=== PATIENT | male | born 1960 | race Caucasian/White ===

== ENCOUNTER → 2022-08-07 | Outpatient (CLI) | payer BC ==
[~2022-08-07] MED LIST: ATOR10TA66 PO; HYDR-623 PO; KETO75CA PO; LOSA100T7 PO; LVT.15T PO; META800T5 PO
== END ==
LOC: CARD 08:47
PROVIDERS: ATTEND Internal Medicine Cardiovascular Disease
DX: R55 Syncope and collapse (principal)
CPT/HCPCS: 93306

== ENCOUNTER → 2022-08-13 | Outpatient (CLI) | payer BC ==
[~2022-08-13] VITALS: Ht 193 cm; Wt 110.0 kg
[~2022-08-13] MED LIST changes: +CATHETER FLUSH 10 ML SYR IVP PRN
[2022-08-13 08:05] VITALS: BP 138/75
--- NOTE | 2022-08-13 16:10 | Cardiology Stress Test Report ---
Stress Test Report Date of Procedure/Referring: Date of Procedure: August 13, 2022 PCP Suly Fu MD Admitting Physician Admitting Physician: Attending Physician: Madhavi Chase MD Indications: Bradycardia Baseline Heart Rate: 52 Baseline Blood Pressure: Blood Pressure Systolic: 138 Blood Pressure Diastolic: 75 Vital Signs Date Time Temp Pulse Resp B/P (MAP) Pulse Ox O2 Delivery O2 Flow Rate FiO2 08/13/22 08:05 52 138/75 (96) Baseline Vital Signs Vital Signs Date Time Temp Pulse Resp B/P (MAP) Pulse Ox O2 Delivery O2 Flow Rate FiO2 08/13/22 08:05 52 138/75 (96) Baseline EKG: Baseline EKG: NSR Summary: After explaining the procedure and details to the patient, he signed the consent and was brought to the stress nuclear laboratory. Patient exercised on standard Pablo protocol, EKG, heart rate and blood pressure were monitored continuously, resting and stress doses of radio tracer were injected, imaging was acquired and reviewed in the short axis, horizontal long axis and vertical long axis views Patient was able to exercise for a total of 7.30 minutes on Pablo protocol, METs 9.1 Maximum heart rate 143 Maximum blood pressure 216/99 Stress EKG, Minimal nondiagnostic changes Recovery EKG, Return to baseline TID: 0.92 SSS: 6 SDS: 3 EF: 62 Conclusion: Good exercise tolerance for 7 minutes and 30 seconds on standard Pablo protocol 9.1 METS achieving 91% of maximal expected heart rate Appropriate heart rate response to exercise with occasional PVCs noted at peak stress level. Return to baseline during recovery Hypertensive response to exercise with peak blood pressure 216/99 return to baseline during recovery Nondiagnostic EKG changes with exercise return to baseline during recovery Reversible ischemia involving the mid anterior wall and mid to apical anterolateral wall Normal left ventricular size, ejection fraction 62% Copy Copies To 1: SULY FU MD, BASHAR J MD August 13, 2022 16:10
== END ==
LOC: CARD 06:31
PROVIDERS: ATTEND Internal Medicine Cardiovascular Disease
DX: I25.89 Other forms of chronic ischemic heart disease (principal)
CPT/HCPCS: 78452; 93017; A9502

== ENCOUNTER 2022-08-20 10:27 | Day surgery (SDC) | payer BC ==
[2022-08-20] VITALS (7 sets, daily range): BP systolic 116–159; BP diastolic 65–78
[~2022-08-20] VITALS: Ht 193 cm; Wt 113.4 kg
[~2022-08-20 10:27] MED LIST changes: -CATHETER FLUSH 10 ML SYR IVP PRN
[2022-08-20] MEDS ORDERED: LIDOCAINE 1% INJ 20 ML VIAL ONE (10:56)
[2022-08-20] MEDS ORDERED: NS IV 1000 ML 1,000 ML ONE (10:56)
[2022-08-20] MEDS ORDERED: HEParin (CATH LAB) 2,000 ML IV ONE (10:56)
[2022-08-20] MEDS ORDERED: NS IV 1000 ML 1,000 ML IV SCH ×2 (11:00→13:45)
[2022-08-20 11:22] LABS: HEMATOCRIT 53 % (40-54); HEMOGLOBIN 17.7 g/dL (13.3-17.7); MEAN CORPUSCULAR HEMOGLOBIN 32 pg (25-34); MEAN CORPUSCULAR HGB CONC 33 g/dL (32-36); MEAN CORPUSCULAR VOLUME 96 fL (80-99); MEAN PLATELET VOLUME 9.6 fL (9.0-12.2); PLATELET COUNT 205 10^3/uL (130-400); WHITE BLOOD COUNT 6.9 10^3/uL (4.3-11.0)
[2022-08-20 11:23] LABS: BILIRUBIN,URINE NEGATIVE (NEGATIVE); CLARITY,URINE CLEAR; COLOR,URINE YELLOW; GLUCOSE, URINE (UA) NEGATIVE (NEGATIVE); KETONES,URINE NEGATIVE (NEGATIVE); LEUKOCYTE ESTERASE ,URINE NEGATIVE (NEGATIVE); NITRITE,URINE NEGATIVE (NEGATIVE); PROTEIN,URINE NEGATIVE (NEGATIVE)
[2022-08-20] MEDS ORDERED: LOSA100T57 PO (11:27)
[2022-08-20] MEDS ORDERED: MTP25TSR PO (11:27)
[2022-08-20] MEDS ORDERED: LEVO75CA5 PO (11:27)
[2022-08-20] MEDS ORDERED: RIVA20TA PO (11:27)
[2022-08-20 11:33] LABS: BACTERIA,URINE NEGATIVE /HPF; WBC,URINE RARE /HPF
[2022-08-20 11:34] LABS: INR 0.9 (0.8-1.4); PROTHROMBIN TIME PATIENT 12.8 SEC (12.2-14.7)
[2022-08-20 11:41] LABS: ALBUMIN 4.6 GM/DL (3.2-4.5); ALKALINE PHOSPHATASE 66 U/L (40-136); BILIRUBIN,TOTAL 0.7 MG/DL (0.1-1.0); BUN/CREATININE RATIO 15; CALCIUM 9.8 MG/DL (8.5-10.1); CARBON DIOXIDE 31 MMOL/L (21-32); CHLORIDE 104 MMOL/L (98-107); CHOLESTEROL 247 MG/DL (< 200); CREATININE SERUM 1.37 MG/DL (0.60-1.30); GFR ESTIMATED 58; GLUCOSE 84 MG/DL (70-105); HDL CHOLESTEROL 54 MG/DL (40-60); POTASSIUM 3.8 MMOL/L (3.6-5.0); SODIUM 143 MMOL/L (135-145); TRIGLYCERIDES 89 MG/DL (<150); VLDL CHOLESTEROL 18 MG/DL (5-40)
--- NOTE | 2022-08-20 11:41 | Cardiac Procedure Note-CS/ASA ---
Pre-Procedure Note Pre-Op Procedure Note Date of Available H&P: August 14, 2022 Date H&P Reviewed: August 20, 2022 Time H&P Reviewed: 11:40 History & Physical: H&P Reviewed, Patient Examed, No changes noted Pre-Operative Diagnosis: CAD Moderate Sedation PreProcedure Time 11:40 ASA Score 3 Airway Lungs Heart ASA score ASA 1: a normal healthy patient ASA 2: a patient with a mild systemic disease (mid diabetes, controlled hypertension, obesity ASA 3: a patient with a severe systemic disease that limits activity (angina, COPD, prior Myocardial infarction) ASA 4: a patient with an incapacitating disease that is a constant threat to life (CHF, renal failure) ASA 5: a moribund patient not expected to survive 24 hrs. (ruptured aneurysm) ASA 6: a declared brain- patient whose organs are being harvested. For emergent operations, add the letter E after the classification Mallampati Classification Grade 3 Sedation Plan Analgesia, Amnesia, Plan communicated to team members, Discussed options with patient/fam, Discussed risks with patient/fam The patient is an appropriate candidate to undergo the planned procedure, sedation, and anesthesia. The patient immediately re-assessed prior to indication. ALLISON PORTILLO MD August 20, 2022 11:41
--- NOTE | 2022-08-20 11:53 | Diagnostic Imaging Report ---
INDICATION: Abnormal stress test COMPARISON: None available. TECHNIQUE: Single radiograph chest dated 08/20/2022. FINDINGS: The cardiac silhouette is enlarged. No significant pulmonary vascular congestion. Low lung volumes. The lungs are clear of focal pulmonary opacity. No significant pleural effusion. No pneumothorax. No acute osseous abnormality. IMPRESSION: Cardiomegaly without significant pulmonary vascular congestion. Low lung volumes. Dictated by: Dictated on workstation # [id number]
[2022-08-20 12:45] LABS: ALANINE AMINOTRANSFERASE 27 U/L (0-55)
[2022-08-20] MEDS ORDERED: fentaNYL INJ 100 MCG/2 ML AMP ONE (12:53)
[2022-08-20] MEDS ORDERED: MIDAZOLAM 5 MG/5 ML (VERSED) VIAL ONE (12:53)
[2022-08-20] MEDS ORDERED: VERAPAMIL 5 MG/2 ML (CALAN) VIAL IV ONE (12:53)
[2022-08-20] MEDS ORDERED: NITRO DRIP 25000 MCG/D5W 250 ML IV ONE (12:54)
[2022-08-20] MEDS ORDERED: HEParin 1000 UNIT/ML (10ML VIAL) FOR BOLUS ONE (12:54)
--- NOTE | 2022-08-20 13:41 | Discharge Inst-Post CATH ---
Discharge Inst-CATH/EP Problems Reviewed?: Yes Post Cardiac Cath/EP D/C Inst Follow Up/Plan Appointment with Dr. Chase's office in 4 weeks <b>CARDIAC CATH/EP PROCEDURE DISCHARGE INSTRUCTIONS</b> ACTIVITY * Go Home directly and rest. * Limit activity of the leg (or wrist if it was used) for 7 days including aerobics, swimming, jogging, bicycling, etc. * Restrict stair-climbing for 7 days if possible, if not, climb up with your non-cath leg, then bring together on the same step. * Avoid lifting, pushing, pulling or excessive movement of the affected extremity for 7 days. * Customary sexual activity may be resumed after 2 days-use caution not to use a position that strains or causes pain to the affected extremity. * No driving for 24 hours. * NO SMOKING. * Avoid straining for bowel movements for 7 days. * Gentle walking on level ground is allowed. * Returning to work will depend on the type of procedure and the results. Your doctor will discuss this with you. CALL YOUR DOCTOR FOR ANY OF THE FOLLOWING: *If bleeding from the puncture site occurs- Apply gentle pressure to site with clean cloth and call your doctor or EMS. * If a knot or lump forms under the skin, increases in size, or causes pain. * If bruising appears to be worsening or moving further down your leg instead of disappearing. * Temperature above 101 F. CARE OF YOUR GROIN INCISION; * Bruising or purple discoloration of the skin near the puncture site is common. * You may shower only, no bathtub bathing for 5 days. Be careful to avoid slipping as your leg may feel stiff. * If a closure device was used on your femoral artery, please see the attached guide regarding care of the device and your leg. * Leave dressing on FOR 24 hours. CARE OF YOUR WRIST INCISION; * Bruising or purple discoloration of the skin near the puncture site is common. * You may shower. * DO NOT submerge wrist. * Leave dressing on FOR 24 hours. ALLISON CHASE MD August 20, 2022 13:41
--- NOTE | 2022-08-20 13:44 | Cardiac Cath Report ---
Cardiac Cath Report Physician (s)/Career Technical Education Instructor (s) Physician ALLISON PORTILLO MD Pre-Procedure Diagnosis Pre-Procedure Diagnosis: CAD Post-Procedure Note Procedure Start Date: August 20, 2022 Name of Procedure: Left heart catheterization Findings/Procedure Note PROCEDURE NOTE: 62-year-old gentleman with a history of hypertension, hyperlipidemia, had an abnormal stress test, scheduled for cardiac catheterization possible PTCA. After explaining the procedure to the patient, all pros and cons were explained, all questions were answered. The patient signed the consent and then he was placed in the cardiac catheterization laboratory. Groin was prepped in SL fashion local anesthesia was used. Sheath placed in the right radial artery, [place] catheter was advanced to the left ventricular cavity, pressure was measured pullback LV to aorta was done, engage the right and left coronary system, angiogram was done. At the end of the procedure the sheath was removed. Vascular band was used FINDINGS: Hemodynamics LV 101/16, end-diastolic pressure of 16 Aorta 108/66 mean of 83 ANATOMY: Left Main is free of obstructive disease Left Anterior Descending has mild disease no significant obstructive disease Left Circumflex has mild disease no significant obstructive disease Right Coronary Artery is dominant artery with 30 to 40% stenosis proximally nonobstructive disease LV Gram was not done, pressure was measured CONCLUSION: 30 to 40% stenosis in the proximal right coronary artery otherwise mild coronary artery disease nonobstructive disease Normal left ventricular end-diastolic pressure DISCUSSION AND RECOMMENDATION: Abnormal stress test is probably due to extracardiac attenuation, medical therapy is recommended no intervention is needed Anesthesia Type: Conscious Sedation Estimated blood loss (mL): 10 ml Contrast Amount: 33 ml Post-Procedure Diagnosis Post-operative diagnosis: Chest pain Coronary artery disease Hypertension Hyperlipidemia ALLISON PORTILLO MD August 20, 2022 13:44
== END 2022-08-20 16:15 | disposition home or self-care (01) ==
LOC: CATH 10:27
PROVIDERS: ATTEND Internal Medicine Cardiovascular Disease
DX: I25.10 Atherosclerotic heart disease of native coronary artery without angina pectoris (principal); I10 Essential (primary) hypertension; E78.5 Hyperlipidemia, unspecified; F17.210 Nicotine dependence, cigarettes, uncomplicated; I48.0 Paroxysmal atrial fibrillation; I65.23 Occlusion and stenosis of bilateral carotid arteries; I47.29 Other ventricular tachycardia; Z79.890 Hormone replacement therapy; E03.9 Hypothyroidism, unspecified; Z79.899 Other long term (current) drug therapy; Z79.01 Long term (current) use of anticoagulants; Z28.310 Unvaccinated for COVID-19
CPT/HCPCS: 71045; 80053; 80061; 81000; 84443; 85027; 85610; 85730; 87081; 93005; 93458; C1894; 36415